=== PATIENT | female | born 1990 | race Caucasian/White ===

== ENCOUNTER 2016-07-10 19:37 | Emergency (ER) | payer BC ==
[2016-07-10 19:58] VITALS: BP 106/63
--- NOTE | 2016-07-10 20:17 | UC ---
FLU HPI - HPI Summary HPI Summary: Fever 2 nights ago of 101+, cough, ST, nasal congestion, and nausea and stomach upset. Feeling worse today by far. Has been taking OTC fever reducers. - History of Current Complaint Chief Complaint: UCRespiratory Stated Complaint: CONGESTION,ACHES Time Seen by Provider: 07/10/16 20:00 Hx Obtained From: Patient Hx Last Menstrual Period: 2 weeks ?: No Onset/Duration: Gradual Onset, Lasting Days Severity Currently: Moderate Severity Initially: Moderate Associated Signs & Symptoms: Positive: Fever, Cough, Sore Throat, Nasal Congestion, Headache - Allergy/Home Medications Allergies/Adverse Reactions: Allergies Allergy/AdvReac Type Severity Reaction Status Date / Time No Known Allergies Allergy Verified 07/10/16 19:50 Home Medications: Home Medications Fexofenadine (NF) [Holly (NF)] 1 tab PO DAILY PRN 07/10/16 [History Confirmed 07/10/16] Spironolactone TAB* [Aldactone TAB 25 MG*] 1 tab PO DAILY 07/10/16 [History Confirmed 07/10/16] Topiramate TAB(*) [Topamax 100 MG(*)] 50 mg PO BID 07/10/16 [History Confirmed 07/10/16] metroNIDAZOLE TAB* [Flagyl 250 mg TAB*] PO BID 07/10/16 [History] PMH/Surg Hx/FS Hx/Imm Hx Endocrine History Of: Denies: Diabetes Cardiovascular History Of: Denies: Hypertension, Congestive Heart Failure GI/ History Of: Denies: Renal Disease - Surgical History Surgical History: None - Family History Known Family History: Negative: Blood Disorder - Social History Occupation: Employed Part-time Alcohol Use: Occasionally Substance Use Type: None Smoking Status (MU): Never Smoked Tobacco - Immunization History Most Recent Influenza Vaccination: 2015/2016 Review of Systems Constitutional: Fever, Fatigue Skin: Negative Eyes: Negative ENT: Sore Throat, Nasal Discharge Respiratory: Cough Cardiovascular: Negative Gastrointestinal: Negative Genitourinary: Negative Motor: Negative Neurovascular: Negative Musculoskeletal: Negative Neurological: Negative Psychological: Negative All Other Systems Reviewed And Are Negative: Yes Physical Exam Triage Information Reviewed: Yes Appearance: Well-Appearing, Well-Nourished Vital Signs: Initial Vital Signs Temp 98.9 F 07/10/16 19:53 Pulse 82 07/10/16 19:53 Resp 18 07/10/16 19:53 BP 106/63 07/10/16 19:53 Pulse Ox 99 07/10/16 19:53 Vital Signs Reviewed: Yes Eye Exam: Normal Eyes: Positive: Conjunctiva Clear ENT: Positive: Hearing grossly normal, Pharynx normal, Nasal congestion, TMs normal. Negative: Tonsillar swelling, Tonsillar exudate Dental Exam: Normal Neck exam: Normal Neck: Positive: Supple, Nontender, No Lymphadenopathy Respiratory Exam: Normal Respiratory: Positive: Chest non-tender, Lungs clear, Normal breath sounds, No respiratory distress, No accessory muscle use Cardiovascular Exam: Normal Cardiovascular: Positive: RRR, No Murmur Musculoskeletal Exam: Normal Neurological Exam: Normal Psychological Exam: Normal Skin Exam: Normal Flu Course/Dx - Differential Dx/Diagnosis Provider Diagnoses: viral syndrome Discharge - Discharge Plan Condition: Stable Disposition: HOME Patient Education Materials: Viral Syndrome (ED) Forms: *Work Release Referrals: Serenity Zayas NP [Primary Care Provider] - If Needed Additional Instructions: Call or return if you develop increasing fever, shortness of breath, chest pain , bloody sputum, or otherwise worsen. If you have not improved at all after several days, contact your primary care physician or return here.
== END 2016-07-10 20:35 | disposition home or self-care (01) ==
LOC: UCEAST 19:37
DX: B34.9 Viral infection, unspecified (principal)
CPT/HCPCS: 87502; 99201; G0463

== ENCOUNTER 2017-01-13 11:18 | Emergency (ER) | payer BC ==
[2017-01-13] MEDS ORDERED: diPHENhydraMINE IV* 50 MG/ML 1 ml VIAL (BENADRYL) IV ONE (12:07)
[2017-01-13] MEDS ORDERED: Metoclopramide IV* 5 MG/ML 2 ML VIAL IV SLOW PU ONE (12:07)
[2017-01-13 12:25] LABS: Hematocrit 33 % (35-47); Hemoglobin 11.5 g/dl (12.0-16.0); Mean Corpuscular HGB Conc 35 g/dl (31-36); Mean Corpuscular Hemoglobin 30 pg (27-31); Mean Corpuscular Volume 86 fL (80-97); Mean Platelet Volume 7 um3 (7.4-10.4); Red Blood Count 3.85 10^6/ul (4.0-5.4); Red Cell Distribution Width 13 % (10.5-15); White Blood Count 10.7 10^3/ul (3.5-10.8)
[2017-01-13] MEDS: NS 0.9% 1000 ML* 2,000 ML IV ONE ×2 (12:32→13:53)
[2017-01-13 12:43] LABS: Albumin 4.4 g/dL (3.2-5.2); BUN/Creatinine Ratio 11.5 (8-20); Calcium 9.6 mg/dL (8.6-10.3); EGFR African American 184.8 (>60); EGFR Non-African American 143.7 (>60); Globulin 2.9 g/dL (2-4); Potassium 3.7 mmol/L (3.5-5.0); Total Bilirubin 0.6 mg/dL (0.2-1.0); Total Protein 7.3 g/dL (6.4-8.9)
[2017-01-13 14:11] LABS: Urine Bilirubin Negative (Negative); Urine Glucose Negative (Negative); Urine Nitrite Negative (Negative)
[2017-01-13] MEDS ORDERED: Ondansetron ODT TAB* 4 MG PO ONE (14:44)
[2017-01-13 15:59] VITALS: BP 119/93
--- NOTE | 2017-02-01 15:50 | ED ---
Ignacio Stone Thomas, scribed for Randy Mcnulty MD on 01/13/17 at 1227 . GI/ HPI - HPI Summary HPI Summary: The pt is a 26 y/o F who is 8 weeks c/o repeated vomiting that began last night at 19:00. She describes the vomiting as yellowish green this morning , although her vomiting in the ED is clear. She last vomited five minutes prior to examination. She says she has been unable to keep any fluids down. She took Diclegis, an antiemetic, last night after she started vomiting, although this medication did not alleviate her vomiting. She also complains of abdominal pain that she rates 8/10 when she is vomiting. The pain is aggravated by her vomiting and is alleviated by nothing. 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 Pt additionally c/o a migraine ESCOBAR (onset after her vomiting), dysuria, dark urine, L-sided back pain, photophobia, diarrhea (yesterday), chills, lightheadedness (this AM), dizziness (this AM), and excessive flatulence (last two days). She was on Topamax prior to her for her migraines but she stopped taking this medication when she was 4 weeks . Pt denies hematuria, foul odor urine, fever, and vaginal bleeding. PMHx: UTI, migraines, ovarian cysts (unclear if PCOS or not). PSHx: none. SHx: no smoking, no alcohol use, and no illicit drugs. She denies recent sick contacts. She does not have PMHx of kidney infections. LNMP 11/16/16. She has not yet had an ultrasound for this . She has an ultrasound scheduled in three days. G= 1, P=0. She is taking vitamins. She is accompanied by her fianc. She sees a street supervisor at Dr. Sierra office. - History of Current Complaint Chief Complaint: EDNauseaVomitDiarrh Time Seen by Provider: 01/13/17 12:06 Stated Complaint: VOMITTING/8 WKS PREG Hx Obtained From: Patient, Family/[employer] In[employer] - fiance in room Hx Last Menstrual Period: 11/16/16 Onset/Duration: Started Days Ago - onset yesterday at 19:00, Still Present Timing: Constant Severity: Severe Pain Intensity: 8 Associated Signs and Symptoms: Positive: Back Pain, Dizziness, Nausea, Vomiting , Diarrhea, Dysuria, Lightheadedness, Abdominal Pain, Other: - POS: migraine ESCOBAR , dark urine, photophobia, excessive flatulence; NEG: foul odor urine. Negative : Fever, Hematuria, Chills Additional Signs & Symptoms: Negative: Vaginal Bleeding Alleviating Factor(s): Nothing - Allergy/Home Medications Allergies/Adverse Reactions: Allergies Allergy/AdvReac Type Severity Reaction Status Date / Time No Known Allergies Allergy Verified 01/13/17 11:23 PMH/Surg Hx/FS Hx/Imm Hx Previously Healthy: No Endocrine/Hematology History: Denies: Hx Diabetes Cardiovascular History: Denies: Hx Congestive Heart Failure, Hx Hypertension History: Reports: Other Problems/Disorders - Hx ovarian cysts Denies: Hx Renal Disease Neurological History: Reports: Hx Migraine - Surgical History Surgery Procedure, Year, and Place: None. Infectious Disease History: No Infectious Disease History: Denies: Hx Hepatitis, Hx of Known/Suspected MRSA, Hx Shingles, Hx Tuberculosis, Traveled Outside the [place] in Last 30 Days - Family History Known Family History: Negative: Blood Disorder - Social History Alcohol Use: None Substance Use Type: Reports: None Smoking Status (MU): Never Smoked Tobacco Review of Systems Positive: Chills. Negative: Fever Positive: Photophobia. Negative: Erythema - eyes Negative: Sore Throat Negative: Chest Pain Negative: Shortness Of Breath, Cough Positive: Abdominal Pain, Vomiting - onset last night at 19:00, Diarrhea - yesterday, Nausea, Other - POS: excessive flatulence Positive: dysuria, other - POS: dark urine; NEG: foul odor urine, vaginal bleeding. Negative: hematuria Positive: Other - POS: L-sided back pain. Negative: Myalgia, Edema - leg Negative: Rash Neurological: Other - POS: lightheadedness, dizziness Positive: Headache - onset after vomiting began, similar to her previous migraines All Other Systems Reviewed And Are Negative: Yes Physical Exam - Summary Physical Exam Summary: Constitutional: Well-developed, Well-nourished, Alert. (-) Distressed Skin: Warm, Dry HENT: Normocephalic; Atraumatic Eyes: Conjunctiva normal Neck: Musculoskeletal ROM normal neck. (-) JVD, (-) Stridor, (-) Tracheal deviation Cardio: Rhythm regular, rate normal, Heart sounds normal; Intact distal pulses; The pedal pulses are 2+ and symmetric. Radial pulses are 2+ and symmetric. (-) Murmur Pulmonary/Chest wall: Effort normal. (-) Respiratory distress, (-) Wheezes, (-) Rales Abd: Soft, (-) Tenderness, (-) Distension, (-) Guarding, (-) Rebound Musculoskeletal: (-) Edema Lymph: (-) Cervical adenopathy Neuro: Alert, Oriented x3 Psych: Mood and affect Normal Triage Information Reviewed: Yes Vital Signs On Initial Exam: Initial Vitals Temp Pulse Resp BP Pulse Ox 98.2 F 71 17 128/60 100 01/13/17 11:19 01/13/17 11:19 01/13/17 11:19 01/13/17 11:19 01/13/17 11:19 Vital Signs Reviewed: Yes Diagnostics - Vital Signs Vital Signs Temp Pulse Resp BP Pulse Ox 01/13/17 11:19 98.2 F 71 17 128/60 100 - Laboratory Result Diagrams: 01/13/17 12:15 01/13/17 12:15 Lab Statement: Any lab studies that have been ordered have been reviewed, and results considered in the medical decision making process. Re-Evaluation - Re-Evaluation First Eval Re-Evaluation Time: 14:45 Change: Improved Comment: She is tolerating jello. Second Eval Re-Evaluation Time: 15:37 Change: Improved Comment: She kept down half a liter of oral fluids. GIGU Course/Dx - Course Assessment/Plan: The pt is a 26 y/o F who is 8 weeks c/o repeated vomiting that began last night at 19:00. She says she has been unable to keep any fluids down. She took Diclegis, an antiemetic, last night after she started vomiting, although this medication did not alleviate her vomiting. She also complains of abdominal pain, migraine ESCOBAR, dysuria, dark urine, L-sided back pain , photophobia, diarrhea, chills, lightheadedness, dizziness, and excessive flatulence. PMHx: UTI, migraines, ovarian cysts (unclear if PCOS or not). G=1, P =0. In the ED the patient was given IV fluids, Reglan, Zofran, and Benadryl. At 14:44 she is tolerating jello. At 15:37, she kept down half a liter of PO fluids. Bloodwork shows RBC 3.85, Hgb 11.5, Hct 33, Beta HCG is 124,099. UA shows 1+ ketones but is otherwise clean. She is diagnosed with hyperemesis gravidarum and is discharged home. She will follow up with her street supervisor on Saturday. - Diagnoses Provider Diagnoses: Hyperemesis gravidarum Discharge - Discharge Plan Condition: Stable Disposition: HOME Prescriptions: Metoclopramide TAB* [Reglan TAB*] 10 mg PO Q8H PRN #10 tab PRN Reason: Nausea Patient Education Materials: Hyperemesis Gravidarum (ED) Referrals: Serenity Zayas NP [Primary Care Provider] - Additional Instructions: Follow up with your street supervisor on 01/16/17. Return to the emergency department for any new or worsening symptoms. The documentation as recorded by the Ignacio aiken Thomas accurately reflects the service I personally performed and the decisions made by , Randy Mcnulty MD.
== END 2017-01-13 15:59 | disposition home or self-care (01) ==
LOC: ED 11:18
DX: O21.0 Mild hyperemesis gravidarum (principal); Z3A.08 8 weeks gestation of pregnancy
CPT/HCPCS: 36415; 80053; 81003; 84702; 85027; 96374; 96375; 99283; A9270-GY; J1200; J2765

== ENCOUNTER 2017-01-16 19:38 | Emergency (ER) | payer BC ==
[2017-01-16] MEDS ORDERED: Metoclopramide IV* 5 MG/ML 2 ML VIAL IV ONE (20:09)
[2017-01-16] MEDS ORDERED: NS 0.9% 1000 ML* 1,000 ML IV ONE (20:09)
[2017-01-16 20:46] LABS: Hematocrit 34 % (35-47); Hemoglobin 11.5 g/dl (12.0-16.0); Mean Corpuscular HGB Conc 34 g/dl (31-36); Mean Corpuscular Hemoglobin 30 pg (27-31); Mean Corpuscular Volume 87 fL (80-97); Mean Platelet Volume 7 um3 (7.4-10.4); Red Blood Count 3.86 10^6/ul (4.0-5.4); Red Cell Distribution Width 13 % (10.5-15); White Blood Count 12.7 10^3/ul (3.5-10.8)
[2017-01-16 21:01] LABS: Albumin 4.6 g/dL (3.2-5.2); BUN/Creatinine Ratio 11.8 (8-20); C Reactive Protein 1.33 mg/L (< 5.00); Calcium 10.1 mg/dL (8.6-10.3); EGFR Non-African American 146.9 (>60); Globulin 3.2 g/dL (2-4); Magnesium 1.9 mg/dL (1.9-2.7); Potassium 3.9 mmol/L (3.5-5.0); Total Bilirubin 0.7 mg/dL (0.2-1.0); Total Protein 7.8 g/dL (6.4-8.9)
[2017-01-16] MEDS ORDERED: NS 0.9% 1000 ML* 2,000 ML IV ONE (22:53)
--- NOTE | 2017-01-16 23:00 | ED ---
Abdominal Pain/Female - HPI Summary HPI Summary: 26 female presents to ED with complaints of repetitive vomiting that has worsened today. Patient was seen on Saturday01/13/17 with similar complaints and diagnosed with hyperemesis gravidarum. Patient is 9 weeks . First . Patient was vomiting 1-2 a day on sat-, however today started at 12:00pm patient had intractable vomiting. Took Diclagex, zofran and reglan without relief, feels as though it is unable to take effect because she vomits it up shortly after. Patient states her abdomen muscles are sore, from vomiting however denies pain. States vomit depends on what food she attempted to eat last. She has been unable to keep any food or drink down. No other complaints at this time. Denies fever/chills, abdominal pain, chest pain and difficulty breathing. States she has had full body aches and is just not feeling well. Also admits to some dysuria/burning during urination. Had ultrasound this morning and is completely normal. Denies vaginal bleeding, discharge or cramping. No other complaints at this time. No PMHx. - History of Current Complaint Chief Complaint: EDNauseaVomitDiarrh Stated Complaint: VOMITING Time Seen by Provider: 01/16/17 21:55 Hx Obtained From: Patient, Family/Office Spec - Hx Last Menstrual Period: 9 weeks ?: Yes Onset/Duration: Sudden Onset, Lasting Days, Still Present Timing: Constant Severity Initially: Moderate Severity Currently: Moderate Pain Intensity: 7 Pain Scale Used: 0-10 Numeric Location: Diffuse - abdomen muscles Radiates: No Aggravating Factor(s): Food Alleviating Factor(s): Nothing, Medications - at ED Associated Signs and Symptoms: Positive: Nausea, Vomiting. Negative: Constipation, Blood in Stool, Urinary Symptoms, Vaginal Bleeding Allergies/Adverse Reactions: Allergies Allergy/AdvReac Type Severity Reaction Status Date / Time No Known Allergies Allergy Verified 01/16/17 19:45 PMH/Surg Hx/FS Hx/Imm Hx Endocrine/Hematology History: Denies: Hx Diabetes Cardiovascular History: Denies: Hx Congestive Heart Failure, Hx Hypertension History: Denies: Hx Renal Disease - Surgical History Surgery Procedure, Year, and Place: n/a - Immunization History Immunizations Up to Date: Yes Infectious Disease History: No Infectious Disease History: Denies: Hx Hepatitis, Hx of Known/Suspected MRSA, Hx Shingles, Hx Tuberculosis, Traveled Outside the [place] in Last 30 Days - Family History Known Family History: Positive: None Negative: Blood Disorder - Social History Alcohol Use: Occasionally Substance Use Type: Reports: None Smoking Status (MU): Never Smoked Tobacco Review of Systems Constitutional: Negative Cardiovascular: Negative Respiratory: Negative Positive: Vomiting, Nausea Positive: Myalgia Positive: Headache - resolved All Other Systems Reviewed And Are Negative: Yes Physical Exam Triage Information Reviewed: Yes Vital Signs On Initial Exam: Initial Vitals Temp Pulse Resp BP Pulse Ox 98.3 F 80 16 128/64 98 01/16/17 19:43 01/16/17 19:43 01/16/17 19:43 01/16/17 19:43 01/16/17 19:43 Vital Signs Reviewed: Yes Appearance: Positive: No Pain Distress, Well-Nourished, Ill-Appearing Skin: Positive: Warm, Skin Color Reflects Adequate Perfusion, Dry, Pale. Negative: Cold, Soft, Jaundiced, Erythema @ Head/Face: Positive: Normal Head/Face Inspection Eyes: Positive: Conjunctiva Clear ENT: Positive: Hearing grossly normal Dental: Negative: Cervical Lymphadenopathy Neck: Positive: Supple, Nontender Respiratory/Lung Sounds: Positive: Clear to Auscultation, Breath Sounds Present. Negative: Rales, Rhonchi, Wheezes Cardiovascular: Positive: Normal, RRR, Pulses are Symmetrical in both Upper and Lower Extremities. Negative: Murmur, Rub Abdomen Description: Positive: No Organomegaly, Soft, Other: - diffuse discomfort. Negative: Bruit, CVA Tenderness (R), CVA Tenderness (L), Distended , Guarding, Peritoneal Signs, Pulsatile Mass Bowel Sounds: Positive: Present Musculoskeletal: Positive: Normal, Strength/ROM Intact Neurological: Positive: Normal, Sensory/Motor Intact, Alert, Oriented to Person Place, Time Diagnostics - Vital Signs Vital Signs Temp Pulse Resp BP Pulse Ox 01/16/17 19:45 98.3 F 80 16 128/64 98 01/16/17 19:43 98.3 F 80 16 128/64 98 - Laboratory Lab Results: Lab Results 01/16/17 01/16/17 Range/Units 20:39 20:39 WBC 12.7 H (3.5-10.8) 10^3/ul RBC 3.86 L (4.0-5.4) 10^6/ul Hgb 11.5 L (12.0-16.0) g/dl Hct 34 L (35-47) % MCV 87 (80-97) fL MCH 30 (27-31) pg MCHC 34 (31-36) g/dl RDW 13 (10.5-15) % Plt Count 344 (150-450) 10^3/ul MPV 7 L (7.4-10.4) um3 Neut % (Auto) 79.7 (38-83) % Lymph % (Auto) 11.2 L (25-47) % Cassia % (Auto) 8.0 (1-9) % Eos % (Auto) 0.9 (0-6) % Baso % (Auto) 0.2 (0-2) % Absolute Neuts (auto) 10.1 H (1.5-7.7) 10^3/ul Absolute Lymphs (auto) 1.4 (1.0-4.8) 10^3/ul Absolute Monos (auto) 1.0 H (0-0.8) 10^3/ul Absolute Eos (auto) 0.1 (0-0.6) 10^3/ul Absolute Basos (auto) 0 (0-0.2) 10^3/ul Absolute Nucleated RBC 0 10^3/ul Nucleated RBC % 0 Sodium 133 (133-145) mmol/L Potassium 3.9 (3.5-5.0) mmol/L Chloride 102 (101-111) mmol/L Carbon Dioxide 24 (22-32) mmol/L Anion Gap 7 (2-11) mmol/L BUN 6 (6-24) mg/dL Creatinine 0.51 (0.51-0.95) mg/dL Est GFR ( Amer) 189.0 (>60) Est GFR (Non-Af Amer) 146.9 (>60) BUN/Creatinine Ratio 11.8 (8-20) Glucose 92 (70-100) mg/dL Calcium 10.1 (8.6-10.3) mg/dL Magnesium 1.9 (1.9-2.7) mg/dL Total Bilirubin 0.70 (0.2-1.0) mg/dL AST 17 (13-39) U/L ALT 17 (7-52) U/L Alkaline Phosphatase 29 L (34-104) U/L C-Reactive Protein 1.33 (< 5.00) mg/L Total Protein 7.8 (6.4-8.9) g/dL Albumin 4.6 (3.2-5.2) g/dL Globulin 3.2 (2-4) g/dL Albumin/Globulin Ratio 1.4 (1-3) Lipase 20 (11.0-82.0) U/L Beta HCG, Quant 889960.00 mIU/mL Result Diagrams: 01/16/17 20:39 01/16/17 20:39 Lab Statement: Any lab studies that have been ordered have been reviewed, and results considered in the medical decision making process. Re-Evaluation - Re-Evaluation First Eval Re-Evaluation Time: 23:24 Change: Improved - has not vomited, is tolerating applesauce Abdominal Pain Fem Course/Dx - Course Course Of Treatment: labs obtained, normal beta HCG. patient given fluids and reglan, had relief. Did not vomit for ~4/5 hours while in ED. No concern for fetus complications. Had normal ultrasound this morning. urinalysis obtained and negative. labs obtained and showed chornic anemia, not of conern and slight elevated WBC. no other concern for dehydration or malnutrition at this time. patient will be given medication to take at home, every 6-8 hours. fluids, follow up OBGYN tomorrow. Discussed with Dr Andrade who agrees with plan. Patient agrees and understands. No concern for any other emergent etiology at this time. - Diagnoses Differential Diagnosis: Positive: Other - vomiting, nausea, , hyperemesis gravidarum Provider Diagnoses: Hyperemesis gravidarum Discharge - Discharge Plan Condition: Stable Disposition: HOME Prescriptions: Metoclopramide TAB* [Reglan TAB*] 10 mg PO Q8H #15 tab Ondansetron ODT TAB* [Zofran 4 MG Odt TAB*] 4 mg PO Q6H #15 tab.odt Patient Education Materials: Hyperemesis Gravidarum (ED) Referrals: Serenity Zayas NP [Primary Care Provider] - Rolly Palomino MD [Medical Doctor] - Additional Instructions: Take prescribed medication as directed, multiple times daily, before feeling nauseous. Take it pretty regularly. Also take prescribed zofran. Follow up with OBGYN tomorrow for further evaluation and to discuss residential treatment. Drink plenty of fluids as much as possible, try and eat soft easy foods that do not make you nauseous. If you develop worsening signs or symptoms please seek medical attention and return to ED, as discussed.
[2017-01-16] MEDS ORDERED: Ondansetron INJ* 2 MG/ML VIAL IV ONE (23:14)
[2017-01-16] MEDS ORDERED: Metoclopramide TAB* 10 MG PO ONE (23:14)
[2017-01-16] MEDS ORDERED: Ondansetron ODT TAB* 4 MG PO ONE (23:21)
[2017-01-16 23:43] LABS: Urine Bilirubin Negative (Negative); Urine Glucose Negative (Negative); Urine Nitrite Negative (Negative)
[2017-01-17 00:35] VITALS: BP 116/66
== END 2017-01-17 00:37 | disposition home or self-care (01) ==
LOC: ED 19:38
DX: O21.0 Mild hyperemesis gravidarum (principal)
CPT/HCPCS: 36415; 80053; 81003; 83690; 83735; 84702; 85025; 86140; 96360; 96361; 96374; 96375; 99285; A9270-GY; J2405; J2765

== ENCOUNTER 2017-05-08 08:18 | Emergency (ER) | payer BC, OTHER ==
[2017-05-08 09:22] LABS: ABS Basophils 0 10^3/ul (0-0.2); ABS Eosinophils 0.1 10^3/ul (0-0.6); ABS Lymphocytes 1.3 10^3/ul (1.0-4.8); ABS Monocytes 0.7 10^3/ul (0-0.8); ABS Neutrophils 7.6 10^3/ul (1.5-7.7); ABS Nucleated RBC 0 10^3/ul; Eosinophil % 1.4 % (0-6); Hematocrit 35 % (35-47); Hemoglobin 11.8 g/dl (12.0-16.0); Lymphocyte % 13.1 % (25-47); Mean Corpuscular HGB Conc 34 g/dl (31-36); Mean Corpuscular Hemoglobin 31 pg (27-31); Mean Corpuscular Volume 90 fL (80-97); Mean Platelet Volume 8 um3 (7.4-10.4); Nucleated Red Blood Cells % 0; Platelet Count 301 10^3/ul (150-450); Red Blood Count 3.87 10^6/ul (4.0-5.4); Red Cell Distribution Width 13 % (10.5-15); White Blood Count 9.8 10^3/ul (3.5-10.8)
[2017-05-08] MEDS ORDERED: Acetaminophen TAB* 325 MG PO ONE (09:59)
[2017-05-08 10:13] LABS: EGFR Non-African American 178.9 (>60)
--- NOTE | 2017-05-08 10:45 | ED ---
Richie Stone Angela, scribed for Sobia Zapata MD on 05/08/17 at 0957 . Abdominal Pain/Female - HPI Summary HPI Summary: This pt is a 26 y/o female, currently 25 weeks , presenting to [facility] for evaluation of intermittent RLQ pain. Pt states she had "stomach bug" on 2016 with vomiting and diarrhea. Pt reports mild abdominal discomfort at this time. Pain resolved. Again on 2016 with with some nausea. Pt started yesterday morning and progressed. Last night at 19:00, pt had increased pain that she couldn't even walk due to pain. She spoke with her nurse relocation manager concrete batch plant operator who discussed possibility of round ligament pain vs appendicitis. Pt states she took APAP and applied heat. STates pain improved and she was able to sleep most of the night. PT states this morning still has discomfort with movement. No APAP today. No fever chills. + po. mild nausea. No back pain. no radiation. No rhythmic or contraction nature of pain. Worse with movement, walking. No dysuria, hematuria. no LOF. She states she has always been constipated (for which she takes colace), which and feels increased constipation over past week. Currently denies diarrhea, vomiting, fever, vaginal discharge, odor. Denies trauma. Pt had a banana and water this morning. Reports being hungry now. No call to ob/ treasury agent today. Pt is currently on fioricet as needed for migraines, vitamins and colace. Patients medication reviewed this visit. 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 Negative: Urinary Symptoms, Decreased Appetite, Vaginal Bleeding, Vomiting, Diarrhea Allergies/Adverse Reactions: Allergies Allergy/AdvReac Type Severity Reaction Status Date / Time No Known Allergies Allergy Verified 03/10/17 16:07 PMH/Surg Hx/FS Hx/Imm Hx Previously Healthy: Yes Endocrine/Hematology History: Denies: Hx Diabetes Cardiovascular History: Denies: Hx Congestive Heart Failure, Hx Hypertension, Hx Pacemaker/ICD History: Denies: Hx Renal Disease Sensory History: Denies: Hx Hearing Aid Neurological History: Reports: Hx Migraine Psychiatric History: Denies: Hx Panic Disorder - Surgical History Surgery Procedure, Year, and Place: n/a - Immunization History Date of Influenza Vaccine: 02/19 Immunizations Up to Date: Yes Infectious Disease History: No Infectious Disease History: Denies: Hx Hepatitis, Hx of Known/Suspected MRSA, Hx Shingles, Hx Tuberculosis, History Other Infectious Disease, Traveled Outside the [place] in Last 30 Days - Family History Known Family History: Positive: Other - Polycystic Kidney Disease Negative: Blood Disorder - Social History Occupation: Employed Full-time Lives: With Family Alcohol Use: Occasionally Substance Use Type: Reports: None Smoking Status (MU): Never Smoked Tobacco Review of Systems Negative: Fever, Chills Eyes: Negative ENT: Negative Cardiovascular: Negative Respiratory: Negative Positive: Abdominal Pain, Nausea. Negative: Vomiting, Diarrhea Negative: discharge, pain Musculoskeletal: Negative Skin: Negative Neurological: Negative All Other Systems Reviewed And Are Negative: Yes Physical Exam Triage Information Reviewed: Yes Vital Signs On Initial Exam: Initial Vitals Temp Pulse Resp BP Pulse Ox 98.6 F 73 20 121/69 99 05/08/17 08:43 05/08/17 08:43 05/08/17 08:43 05/08/17 08:43 05/08/17 08:43 Vital Signs Reviewed: Yes Appearance: Positive: Well-Appearing, Pain Distress - mild discomfort with movement in RLQ Skin: Positive: Warm, Skin Color Reflects Adequate Perfusion, Dry Head/Face: Positive: Normal Head/Face Inspection Eyes: Positive: Normal ENT: Positive: Normal ENT inspection, Hearing grossly normal, Pharynx normal Neck: Positive: Supple, Nontender, No Lymphadenopathy Respiratory/Lung Sounds: Positive: Clear to Auscultation, Breath Sounds Present , Decreased Breath Sounds Cardiovascular: Positive: Normal, RRR. Negative: Murmur Abdomen Description: Positive: Soft, Other: - gravid mild TTP very low RLQ no guarding no rebound mild increased pain with SLE right soft + BS. Negative: CVA Tenderness (R), CVA Tenderness (L), Distended, Guarding Bowel Sounds: Positive: Present Musculoskeletal: Positive: Normal Neurological: Positive: Normal, Alert, Oriented to Person Place, Time Psychiatric: Positive: Normal - Adger Coma Scale Coma Scale Total: 14 Diagnostics - Vital Signs Vital Signs Temp Pulse Resp BP Pulse Ox 05/08/17 08:43 98.6 F 73 20 121/69 99 - Laboratory Lab Results: Lab Results 05/08/17 Range/Units 09:10 WBC 9.8 (3.5-10.8) 10^3/ul RBC 3.87 L (4.0-5.4) 10^6/ul Hgb 11.8 L (12.0-16.0) g/dl Hct 35 (35-47) % MCV 90 (80-97) fL MCH 31 (27-31) pg MCHC 34 (31-36) g/dl RDW 13 (10.5-15) % Plt Count 301 (150-450) 10^3/ul MPV 8 (7.4-10.4) um3 Neut % (Auto) 77.8 (38-83) % Lymph % (Auto) 13.1 L (25-47) % [place] % (Auto) 7.3 (1-9) % Eos % (Auto) 1.4 (0-6) % Baso % (Auto) 0.4 (0-2) % Absolute Neuts (auto) 7.6 (1.5-7.7) 10^3/ul Absolute Lymphs (auto) 1.3 (1.0-4.8) 10^3/ul Absolute Monos (auto) 0.7 (0-0.8) 10^3/ul Absolute Eos (auto) 0.1 (0-0.6) 10^3/ul Absolute Basos (auto) 0 (0-0.2) 10^3/ul Absolute Nucleated RBC 0 10^3/ul Nucleated RBC % 0 Result Diagrams: 05/08/17 09:10 05/08/17 09:10 Lab Statement: Any lab studies that have been ordered have been reviewed, and results considered in the medical decision making process. - Ultrasound No standard instances Ultrasound Interpretation Completed By: Radiologist - right ovary us - no cysts , good flow, no fluid in culdesac appendix us - no fluid, appendix not visualized - Additional Comments Diagnostic Additional Comments: Pelvic US, as read by radiologist: IMPRESSION: 1. Limited evaluation of the right ovary. 2. Unremarkable right ovary. No sonographic features of torsion. Please note that partial or intermittent torsion may be sonographically normal. Dr. Zapata has reviewed this radiology report. Appendix US, as read by radiologist: IMPRESSION: The appendix was not visualized limiting the exam. Dr. Zapata has reviewed this radiology report. Re-Evaluation - Re-Evaluation First Eval Re-Evaluation Time: 12:20 Comment: Pain slightly improved following APAP. spoke with nurse MW. normal wbc, normal crp, non concerning us. fht 150. will discharge home. return precautions closely reviewed. pt to call [facility] for appt on Sat. work note. heat. support belt. apap. pt comfortabe and in agreement with plan. SO present and in agreement Abdominal Pain Fem Course/Dx - Course Course Of Treatment: heart rate is 150 bpm. Pt is 25weeks with RLQ pain progressive. Pain very low rlq. no guarding, no rebound. Will start with labs, us, urine. APAP. if concerning or ongoing pain, may consider CT however low concern for APPy on exam. Pt and so comfortable and in agreement with plan - Diagnoses Provider Diagnoses: Abdominal pain - Provider Notifications Discussed Care Of Patient With: Nurse Online Content Coordinator Time Discussed With Above Provider: 12:17 Instructed by Provider To: Other - I discussed pt care with nurse relocation manager and reports it is ok for pt to go home. She instructs the pt to follow up with her in 2 days on 05/10/16. Discharge - Discharge Plan Condition: Stable Disposition: HOME Patient Education Materials: Abdominal Pain (ED) Forms: *Gen. Provider Communication, *Work Release Referrals: Radhika Bacon CNM [Gis Analyst] - 1 Day Serenity Zayas NP [Primary Care Provider] - Additional Instructions: -The doctor that evaluate you today thinks that it is okay for your to go home - your blood work and your urine are not concerning -It is recommended you take Tylenol every 6 hours for pain - Okay to apply heat to the area of discomfort - If you develop increased pain, vomiting, fever, chills or ANY Other concerns it is recommended you return IMMEDIATELY to the emergency department - Okay to continue with colace 2 times a day. Okay to add Miralax to help soften your stool - Stay well hydrated - avoid excess caffeine and all alcohol - Contact your nurse relocation manager today to schedule a recheck on Saturday - she is execting you - call your doctor or return with questions or concerns The documentation as recorded by the Richei aiken Angela accurately reflects the service I personally performed and the decisions made by me, Sobia Zapata MD.
--- NOTE | 2017-05-08 10:58 | RAD ---
INDICATION: Right lower quadrant pain. COMPARISON: There are no prior studies available for comparison. TECHNIQUE: Multiple real-time images of the right lower quadrant were obtained using a graded compression technique. FINDINGS: No free intraperitoneal fluid or localized fluid collections are seen. The appendix was not visualized limiting the study. IMPRESSION: THE APPENDIX WAS NOT VISUALIZED LIMITING THE EXAM.
--- NOTE | 2017-05-08 11:11 | RAD ---
HISTORY: Right lower quadrant pain COMPARISONS: April 06, 2010 TECHNIQUE: Multiple transverse and longitudinal ultrasound images were obtained of the right hemipelvis using grayscale, color Doppler, and spectral Doppler imaging using the transabdominal transducer. FINDINGS: UTERUS: No images are submitted of the uterus.. ENDOMETRIUM: No images are submitted of the uterus. CUL-DE-SAC: There is no free fluid within the cul-de-sac. RIGHT OVARY: The right ovary measures 3.9 x 2.2 x 1.4 cm. Normal arterial and venous waveforms are identifiable within the ovary on spectral Doppler imaging. LEFT OVARY: No images are submitted of the left ovary BLADDER: The bladder is not well visualized. OTHER: None IMPRESSION: 1. LIMITED EVALUATION OF THE RIGHT OVARY. 2. UNREMARKABLE RIGHT OVARY. NO SONOGRAPHIC FEATURES OF TORSION. PLEASE NOTE THAT PARTIAL OR INTERMITTENT TORSION MAY BE SONOGRAPHICALLY NORMAL.
[2017-05-08 11:58] LABS: Urine Appearance Clear; Urine Blood Negative (Negative); Urine Color Yellow; Urine Ketones Negative (Negative); Urine Protein Negative (Negative); Urine Specific Gravity 1.012 (1.010-1.030); Urine Urobilinogen Negative (Negative)
[2017-05-08 13:23] VITALS: BP 103/47
== END 2017-05-08 13:20 | disposition home or self-care (01) ==
LOC: ED 08:18
DX: R10.9 Unspecified abdominal pain (principal); Z34.92 Encounter for supervision of normal pregnancy, unspecified, second trimester; R11.0 Nausea
CPT/HCPCS: 36415; 76705; 76856; 76857; 80053; 81003; 83605; 83735; 85025; 86140; 99282; A9270-GY

== ENCOUNTER 2017-08-13 23:24 | Inpatient (IN) | payer OTHER ==
[2017-08-14] MEDS ORDERED: Nalbuphine* 20 MG/ML 1 ML VIAL IV ONE (01:00)
[2017-08-14] MEDS ORDERED: Promethazine INJ(RESTRICTED)* 25 MG/ML 1 ML VIAL IV ONE (01:00)
[2017-08-14] MEDS ORDERED: Lidocaine 1% MPF* 2 ML VIAL ONE (02:22)
[2017-08-14 02:38] LABS: ABS Basophils 0 10^3/ul (0-0.2); ABS Eosinophils 0 10^3/ul (0-0.6); ABS Lymphocytes 1.2 10^3/ul (1.0-4.8); ABS Monocytes 1.1 10^3/ul (0-0.8); ABS Neutrophils 13.3 10^3/ul (1.5-7.7); ABS Nucleated RBC 0 10^3/ul; Eosinophil % 0.1 % (0-6); Hematocrit 35 % (35-47); Hemoglobin 11.6 g/dl (12.0-16.0); Lymphocyte % 7.8 % (25-47); Mean Corpuscular HGB Conc 34 g/dl (31-36); Mean Corpuscular Hemoglobin 30 pg (27-31); Mean Corpuscular Volume 88 fL (80-97); Mean Platelet Volume 8.7 um3 (7.4-10.4); Nucleated Red Blood Cells % 0; Platelet Count 340 10^3/ul (150-450); Red Blood Count 3.92 10^6/ul (4.0-5.4); Red Cell Distribution Width 14 % (10.5-15); White Blood Count 15.7 10^3/ul (3.5-10.8)
[2017-08-14] MEDS ORDERED: Oxytocin in LR* 20 UNITS/1,000 ML BAG IVPB ONE (04:53)
[2017-08-14] MEDS ORDERED: Penicillin G Potassium IV* 5,000,000 UNITS in NS 0.9% 100 ML* 100 ML IVPB ONE (05:00)
--- NOTE | 2017-08-14 05:35 | HP ---
General Information - General Information Maternal Age: 27 Grav: 1 Para: 0 SAB: 0 IEA: 0 Estimated Due Date: 08/18/17 Determined By: Early Ultrasound Gestational Age in Weeks and Days: 39 Weeks and 2 Days Maternal Blood Type and Rh: B Positive - Results this Serology/RPR Result: Non-Reactive Rubella Result: Immune HBsAg Result: Negative HIV Result: Negative Past Medical History Delivery History: See Records Delivery History Comment: Pertinent Past Medical History: See Records Past Medical History Comment: benign heart murmur asthma hx ovarian cysts migraines Pertinent Past Surgical History: None Pertinent Family History: See Records Family History Comment: polycystic kidney disease DM, stroke, colon CA, br CA - Antepartal Records Antepartal Records: Reviewed, Complicated by: - BMI 32.7, migraines, asthma Review of Systems Constitutional: Uncomfortable CV Complaint: No Respiratory: Shortness of Breath: No Gastrointestinal: No Nausea/Vomiting Genitourinary: No Dysuria, No Leaking Fluid Musculoskeletal: Contractions Neurological: No Headache Movement: Normal Exam Allergies/Adverse Reactions: Allergies No Known Allergies Allergy (Verified 08/13/17 23:53) BP:119/71 P:106 R:20 O2:100% T: 98.2 Lab Values - Entire Visit: Laboratory Tests 08/14/17 08/14/17 02:15 02:15 WBC 15.7 H RBC 3.92 L Hgb 11.6 L Hct 35 MCV 88 MCH 30 MCHC 34 RDW 14 Plt Count 340 MPV 8.7 Neut % (Auto) 84.8 H Lymph % (Auto) 7.8 L [place] % (Auto) 7.1 H Eos % (Auto) 0.1 Baso % (Auto) 0.2 Absolute Neuts (auto) 13.3 H Absolute Lymphs (auto) 1.2 Absolute Monos (auto) 1.1 H Absolute Eos (auto) 0 Absolute Basos (auto) 0 Absolute Nucleated RBC 0 Nucleated RBC % 0 Blood Type B Positive Antibody Screen Negative - Measurements Height: 5 ft 6 in Weight: 230 lb Weight in lbs: 230 Body Mass Index (BMI): 37.1 Pre- Weight: 202 lb Weight Gained This : 28 lbs and 0 ozs - Cervical Exam 9/100/0 - Abdominal Exam Abdomen Exam: Non-Tender - Membranes Membrane Status: Intact - Ultrasound/Biophysical Profile Ultrasound Status: Not Done EFM Findings - External Monitor Findings Baseline Heart Rate: 140 External Monitor Findings: Accelerations Present, No Pattern of Variable or Late Decelerations, Variability Moderate, Baseline Stable Contractions: Regular, Moderate Assessment/Plan - Reason for Visit Reason for Visit: ACTIVE LABOR - Obstetrical Risk Factors Obstetrical Risk Factors: GBS Unknown, Obesity - Plan Plan: Active Labor - Date/Time of Admission Date of Admission: 08/13/17
[2017-08-14] MEDS ORDERED: Glycerin ADULT SUPP PR PRN (05:36)
[2017-08-14] MEDS ORDERED: Acetaminophen TAB* 325 MG PO PRN (05:36)
[2017-08-14] MEDS ORDERED: Oxytocin in LR* 20 UNITS/1,000 ML BAG IVPB SCH (06:00)
[2017-08-14] MEDS ORDERED: Simethicone TAB* 80 MG TAB.CHEW PO SCH (08:30)
[2017-08-14] MEDS: Ibuprofen TAB* 600 MG PO PRN ×2 (09:41→18:38)
[2017-08-14] MEDS: Docusate CAP* 100 MG PO SCH ×3 (09:41→21:07)
[2017-08-14] MEDS: Dibucaine 1% 28.35 GM TUBE PR PRN (09:41)
[2017-08-14] MEDS: Witch Hazel PAD* JAR TOPICAL PRN (09:41)
[2017-08-15 06:26] LABS: ABS Basophils 0 10^3/ul (0-0.2); ABS Eosinophils 0.2 10^3/ul (0-0.6); ABS Lymphocytes 2.1 10^3/ul (1.0-4.8); ABS Monocytes 1.2 10^3/ul (0-0.8); ABS Neutrophils 9.8 10^3/ul (1.5-7.7); ABS Nucleated RBC 0 10^3/ul; Eosinophil % 1.3 % (0-6); Hematocrit 30 % (35-47); Hemoglobin 10.1 g/dl (12.0-16.0); Mean Corpuscular HGB Conc 33 g/dl (31-36); Mean Corpuscular Hemoglobin 29 pg (27-31); Mean Corpuscular Volume 88 fL (80-97); Mean Platelet Volume 8.4 um3 (7.4-10.4); Nucleated Red Blood Cells % 0; Platelet Count 261 10^3/ul (150-450); Red Blood Count 3.44 10^6/ul (4.0-5.4); Red Cell Distribution Width 13 % (10.5-15); White Blood Count 13.4 10^3/ul (3.5-10.8)
[2017-08-15] MEDS: Docusate CAP* 100 MG PO SCH ×3 (09:17→19:55)
[2017-08-15] MEDS: Ferrous Gluconate TAB* 324 MG TAB PO SCH ×2 (09:17→20:29)
[2017-08-15] MEDS: Ibuprofen TAB* 600 MG PO PRN ×2 (14:22→19:54)
[2017-08-16] MEDS: Ibuprofen TAB* 600 MG PO PRN (07:45)
[2017-08-16] MEDS: Docusate CAP* 100 MG PO SCH (07:45)
[2017-08-16 09:00] VITALS: BP 108/89
[2017-08-16] MEDS ORDERED: Tetan/Diph/Pertus SYR(Tdap)* 0.5 ML SYR(BOOSTRIX) use SYR IM ONE (10:37)
[2017-08-16] MEDS: Dibucaine 1% 28.35 GM TUBE PR PRN (11:25)
[2017-08-16] MEDS: Witch Hazel PAD* JAR TOPICAL PRN (11:25)
== END 2017-08-16 12:30 | disposition home or self-care (01) | DRG 775 ==
LOC: MCHOBOUT 23:24 → MCHOB 08-14 02:15
PROVIDERS: ADMIT Midwife; ATTEND Midwife
PROC: 10E0XZZ Delivery of Products of Conception, External Approach (ICD-10-PCS; principal; 2017-08-14)
PROC: 0HQ9XZZ Repair Perineum Skin, External Approach (ICD-10-PCS; 2017-08-14)
DX: O99.214 Obesity complicating childbirth (principal); E66.9 Obesity, unspecified; Z68.32 Body mass index [BMI] 32.0-32.9, adult; O77.0 Labor and delivery complicated by meconium in amniotic fluid; O70.0 First degree perineal laceration during delivery; Z3A.39 39 weeks gestation of pregnancy; Z37.0 Single live birth
CPT/HCPCS: 36415; 85025; 86850; 86900; 86901; 90715; A9270-GY; J2300; J2540; J2550

== ENCOUNTER 2018-04-14 10:27 | Emergency (ER) | payer OTHER ==
[2018-04-14 10:41] VITALS: BP 125/67
--- NOTE | 2018-04-14 11:39 | UC ---
FLU HPI - HPI Summary HPI Summary: 27 y/o female, breast feeding, c/o fever Tmax 100.3, chills, body aches, coughing- non-productive, occasional phlegm, sore throat, stomach ache, nasal congestion. No ear pain, mild headache. also c/o child not nursing on left breast, + tenderness, ? warmth, child nursed this AM, decreased symptoms, did not feel any soreness in shower. - History of Current Complaint Chief Complaint: UCGeneralIllness Stated Complaint: FEVER,CHILLS Time Seen by Provider: 04/14/18 11:23 Hx Obtained From: Patient Hx Last Menstrual Period: breast fding ?: No Onset/Duration: Sudden Onset Severity Currently: Moderate Severity Initially: Moderate Pain Intensity: 7 Pain Scale Used: 0-10 Numeric Associated Signs & Symptoms: Positive: Fever - 100.3, T Max - 100.3, Cough, Sore Throat, Nasal Congestion, Headache - Allergy/Home Medications Allergies/Adverse Reactions: Allergies Allergy/AdvReac Type Severity Reaction Status Date / Time No Known Allergies Allergy Verified 04/14/18 10:41 Home Medications: Home Medications NK [No Home Medications Reported] 04/14/18 [History Confirmed 04/14/18] PMH/Surg Hx/FS Hx/Imm Hx Previously Healthy: Yes - Surgical History Surgical History: None Surgery Procedure, Year, and Place: n/a - Family History Known Family History: Positive: None, Other - Polycystic Kidney Disease Negative: Blood Disorder - Social History Alcohol Use: None Substance Use Type: None Smoking Status (MU): Never Smoked Tobacco - Immunization History Most Recent Influenza Vaccination: 04/27/2017 Most Recent Pneumonia Vaccination: n/a Review of Systems All Other Systems Reviewed And Are Negative: Yes Constitutional: Positive: Fever, Chills ENT: Positive: Sore Throat, Nasal Discharge, Sinus Congestion, Sinus Pain/ Tenderness Respiratory: Positive: Cough Is Patient Immunocompromised?: No Physical Exam Triage Information Reviewed: Yes Appearance: No Pain Distress, Well-Nourished, Ill-Appearing - minimal Vital Signs: Initial Vital Signs Temp 99.6 F 04/14/18 10:38 Pulse 98 04/14/18 10:38 Resp 16 04/14/18 10:38 BP 125/67 04/14/18 10:38 Pulse Ox 100 04/14/18 10:38 Eyes: Negative: Conjunctiva Clear ENT: Positive: Pharynx normal, TMs normal, Uvula midline. Negative: Tonsillar swelling, Tonsillar exudate, Sinus tenderness Neck: Positive: Supple, Nontender, No Lymphadenopathy. Negative: Nuchal Rigidity Respiratory: Positive: Chest non-tender, Lungs clear, Normal breath sounds, No respiratory distress, No accessory muscle use. Negative: Respiratory distress, Crackles, Rhonchi, Stridor, Wheezing, Expiration Cardiovascular: Positive: RRR, No Murmur Psychological Exam: Normal Skin Exam: Normal Skin: Positive: Other - no tenderness with palpation over L breast, no warmths, redness. Flu Course/Dx - Course Course Of Treatment: viral illness, work note given, OTC medications for symptoms, no signs of mastitis, continue to monitor increase fluids rapid flu negative - Differential Dx/Diagnosis Differential Diagnosis/HQI/PQRI: Bronchitis, Influenza, RSV, Upper Respiratory Infection Provider Diagnosis: Viral illness Discharge - Sign-Out/Discharge Documenting (check all that apply): Patient Departure All imaging exams completed and their final reports reviewed: No Studies - Discharge Plan Condition: Good Disposition: HOME Patient Education Materials: Viral Syndrome (ED) Forms: *Work Release Referrals: Serenity Zayas NP [Primary Care Provider] - Additional Instructions: - Increase fluid intake - over the counter for body aches, headaches, fever - GO to ER with shortness of breath, fever > 102 - Continue to monitor for mastitis- increased breast pain, fever, chills. - Billing Disposition and Condition Condition: GOOD Disposition: Home
== END 2018-04-14 11:46 | disposition home or self-care (01) ==
LOC: UCEAST 10:27
DX: B34.9 Viral infection, unspecified (principal)
CPT/HCPCS: 99211; G0463

== ENCOUNTER 2019-07-22 18:30 | Emergency (ER) | payer BC ==
[2019-07-22] MEDS ORDERED: NS 0.9% 1000 ML** 1,000 ML IV ONE ×2 (19:29→20:50)
[2019-07-22] MEDS ORDERED: Ondansetron INJ* 2 MG/ML VIAL IV ONE (19:32)
[2019-07-22] MEDS ORDERED: Metoclopramide IV* 5 MG/ML 2 ML VIAL IV SLOW PU ONE (19:38)
--- NOTE | 2019-07-22 19:40 | UC ---
UC General HPI - HPI Summary HPI Summary: 29 yo female presents with vomiting. She is 11 weeks . . She tells me that her last she had a lot of trouble with nausea and vomiting, but was manageable with zofran. This she has had similar issues, but zofran has not been helping as much. Today she has vomited 10+ times and has not been able to eat and has had little to drink. She contacted her OBGYN and they recommended she come here for fluids and flu testing. Pt tells me that she has two family members that recently tested positive for the flu. She did get a flu shot this year. She has not had any zofran today - last dose was yesterday. She endorses some burning with urination that started today, but she believes this is because she is dehydrated. She denies fever, chills, headache, SOB, chest pain, abdominal pain, diarrhea, flank pain, pelvic cramping, vaginal bleeding or discharge. - History of Current Complaint Stated Complaint: VOMITING Time Seen by Provider: 07/22/19 19:29 Hx Obtained From: Patient Hx Last Menstrual Period: 06/09/18 Onset/Duration: Gradual Onset Current Severity: None - Allergy/Home Medications Allergies/Adverse Reactions: Allergies Allergy/AdvReac Type Severity Reaction Status Date / Time bee venom protein (honey bee) Allergy Swelling Verified 07/22/19 19:48 Home Medications: Home Medications Ondansetron TAB* [Zofran 4 MG Tab*] 4 mg PO Q6H PRN #10 tab 07/05/18 [Rx Confirmed 07/22/19] PMH/Surg Hx/FS Hx/Imm Hx - Additional Past Medical History Additional PMH: None - Surgical History Surgical History: None Surgery Procedure, Year, and Place: n/a - Family History Known Family History: Positive: Other - Polycystic Kidney Disease Negative: Blood Disorder - Social History Lives: With Family Alcohol Use: None Substance Use Type: None Smoking Status (MU): Never Smoked Tobacco - Immunization History Most Recent Influenza Vaccination: 04/27/2017 Most Recent Pneumonia Vaccination: n/a Review of Systems All Other Systems Reviewed And Are Negative: No Constitutional: Positive: Negative Skin: Positive: Negative Eyes: Positive: Negative ENT: Positive: Negative Respiratory: Positive: Negative Cardiovascular: Positive: Negative Gastrointestinal: Positive: Vomiting, Nausea Genitourinary: Positive: Dysuria Motor: Positive: Negative Neurovascular: Positive: Negative Musculoskeletal: Positive: Negative Neurological/Mental Status: Positive: Negative Psychological: Positive: Negative Physical Exam - Summary Physical Exam Summary: GENERAL: NAD. WDWN. No pain distress. SKIN: No rashes, sores, or open wounds. HEENT: Head: AT/NC Eyes: PERRLA. EOM intact. Conjunctiva clear without inflammation or discharge. Ears: Hearing grossly normal. TMs intact, no bulging, erythema, or edema. Nose: Nasal mucosa pink and moist. NTTP maxillary and frontal sinus. Throat: Posterior oropharynx without exudates, erythema, or tonsillar enlargement. Uvula midline. NECK: Supple. Nontender. No lymphadenopathy. CHEST: CTAB. No r/r/w. No accessory muscle use. Breathing comfortably and in no distress. CV: RRR. Pulses intact. Brisk cap refill. ABDOMEN: Soft. NTTP. No CVA tenderness. Bowel sounds present NEURO: Alert. PSYCH: Age appropriate behavior. Triage Information Reviewed: Yes Vital Signs: Vital Signs: Temp Pulse Resp BP Pulse Ox 99 F 93 16 114/56 99 07/22/19 19:39 07/22/19 19:39 07/22/19 19:39 07/22/19 19:39 07/22/19 19:39 Laboratory Tests 07/22/19 07/22/19 20:07 20:52 POC Urine Color Adrienne POC Urine Clarity Clear POC Urine pH 6.0 POC Ur Specif Pinnacle >= 1.030 POC Urine Protein Negative POC Ur Glucose (UA) Negative POC Urine Ketones Negative POC Urine Blood Negative POC Urine Nitrite Negative POC Urine Bilirubin 1+ A POC Urine Urobilinogen 1.0 POC U Leukocyte Esteras Negative Influenza A (Rapid) Negative Influenza B (Rapid) Negative Vital Signs Reviewed: Yes Re-Evaluation - Re-Evaluation First Eval Re-Evaluation Time: 20:44 Change: Improved Comment: Still nauseous, but feeling better overall. Needs to urinate - will obtain urine sample at this time Course/Dx - Course Course Of Treatment: POC flu negative. UA negative. POC gluocse 89. heart tones 140s - performed by Dr. Hamilton. Pt was given 1L NS and reglan. States that her nauseous did not improve much, but she feels better overall and has produced urine. She was given 500mL NS additionally and pepcid 20mg -- she had great relief with the pepcid and had no more nausea. No episodes of vomiting in the clinic. She has had ongoing issues with nausea during her pregnancies and I encouraged her to f/u with her OBGYN for better control of this. Continue zofran as prescribed at home - resuming tomorrow. Recommend taking pepcid 20mg daily po. - Diagnoses Provider Diagnosis: Vomiting during Discharge ED - Sign-Out/Discharge Documenting (check all that apply): Patient Departure All imaging exams completed and their final reports reviewed: No Studies - Discharge Plan Condition: Stable Disposition: HOME Patient Education Materials: Nausea and Vomiting in (ED) Referrals: Nany Pat MD [Primary Care Provider] - Additional Instructions: I recommend that you follow up with your OBGYN for control of your nausea and vomiting during . You had reglan and pepcid today, the reglan did not seem to help much, but you had great relief with the pepcid. I recommend trying 20mg pepcid daily. This is over the counter. Your flu test was negative and urine showed no sign of infection. - Billing Disposition and Condition Condition: STABLE Disposition: Home
[2019-07-22 20:18] LABS: Influenza A Molecular Negative (Negative); Influenza B Molecular Negative (Negative)
[2019-07-22] MEDS ORDERED: Famotidine IV* 10 MG/ML 2 ML (20 mg) IV SLOW PU ONE (21:17)
[2019-07-22 21:58] VITALS: BP 108/60
== END 2019-07-22 22:00 | disposition home or self-care (01) ==
LOC: UCEAST 18:30
DX: O21.9 Vomiting of pregnancy, unspecified (principal); R30.0 Dysuria; Z3A.11 11 weeks gestation of pregnancy; Z91.030 Bee allergy status
CPT/HCPCS: 81003; 96360; 96361; 96374; 96375; 99212; G0463; J2765

== ENCOUNTER 2020-02-04 07:09 | Inpatient (IN) ==
[2020-02-04] MEDS ORDERED: Witch Hazel PAD JAR TOPICAL PRN (07:47)
[2020-02-04] MEDS ORDERED: Dibucaine 1% OINT 28.35 GM TUBE PR PRN (07:47)
[2020-02-04] MEDS ORDERED: Glycerin ADULT 2.4 gm SUPP PR PRN (07:47)
[2020-02-04 08:42] LABS: Urine Benzodiazepine Screen None Detected (None Detect); Urine Cannabinoids Screen None Detected (None Detect); Urine Opiates Screen None Detected (None Detect)
[2020-02-05 07:52] VITALS: BP 123/60
[2020-02-05 08:47] LABS: ABS Basophils 0.1 10^3/ul (0-0.2); ABS Eosinophils 0.2 10^3/ul (0-0.6); ABS Monocytes 1.1 10^3/ul (0-0.8); ABS Neutrophils 11.3 10^3/ul (1.5-7.7); Eosinophil % 1.3 %; Hematocrit 33 % (35-47); Hemoglobin 11.1 g/dL (12.0-16.0); Lymphocyte % 13.7 %; Mean Corpuscular HGB Conc 34 g/dL (31-36); Mean Corpuscular Hemoglobin 28 pg (27-31); Mean Corpuscular Volume 82 fL (80-97); Mean Platelet Volume 8.4 fL (7.4-10.4); Platelet Count 302 10^3/uL (150-450); Red Blood Count 4.02 10^6 /uL (3.70-4.87); Red Cell Distribution Width 14 % (10-15); White Blood Count 14.7 10^3/uL (3.5-10.8)
== END 2020-02-05 15:49 | disposition home or self-care (01) | DRG 560 ==
LOC: MCHOB 07:13
PROVIDERS: ADMIT Obstetrics & Gynecology; ATTEND Obstetrics & Gynecology